=== PATIENT | female | born 1985 | race Caucasian/White ===

== ENCOUNTER 2017-05-21 14:10 | Emergency (ER) | payer OTHER ==
[2017-05-21 17:46] VITALS: BP 125/80
== END 2017-05-21 17:52 | disposition home or self-care (01) ==
LOC: ED 14:10
DX: N76.0 Acute vaginitis (principal); Z88.0 Allergy status to penicillin
CPT/HCPCS: 87491; 87591; J0696

== ENCOUNTER 2017-07-23 12:56 | Emergency (ER) | payer OTHER ==
[2017-07-23 15:55] LABS: microscopic required? NO
[2017-07-23 16:05] LABS: UA SPECIFIC GRAVITY 1.015 (1.005-1.035); urine erythrocyte NEGATIVE (NEGATIVE)
[2017-07-23 16:55] VITALS: BP 120/80
== END 2017-07-23 16:55 | disposition home or self-care (01) ==
LOC: ED 12:56
PROVIDERS: Emergency Medicine
DX: N83.201 Unspecified ovarian cyst, right side (principal); Z88.0 Allergy status to penicillin
CPT/HCPCS: 36415; 87491; 87591

== ENCOUNTER 2017-08-19 13:05 | Emergency (ER) | payer OTHER ==
[2017-08-19 15:17] LABS: microscopic required? NO
[2017-08-19 15:29] LABS: PLATELET COUNT 148 x10^3mcL (130-400)
[2017-08-19 15:31] LABS: BASOPHIL % 0 % (0-2)
[2017-08-19 15:31] LABS: urine erythrocyte NEGATIVE (NEGATIVE)
[2017-08-19 15:35] LABS: CALCIUM 8.5 mg/dL (8.5-10.1); CHLORIDE SERUM 105 mmol/L (98-107); CREATININE SERUM 0.8 mg/dL (0.6-1.0); GFR1 > 60 mL/min; GLUCOSE SERUM 95 mg/dL (74-106); POTASSIUM SERUM 3.1 mmol/L (3.5-5.1); SODIUM SERUM 141 mmol/L (136-145)
[2017-08-19 15:40] LABS: ALBUMIN 3.9 g/dL (3.4-5.0); ALKALINE PHOSPHATASE 88 U/L (46-116); ALT/SGPT 19 U/L (14-59); AST/SGOT 17 U/L (15-37); BILIRUBIN TOTAL 1.5 mg/dL (0.20-1.00)
[2017-08-19 19:59] VITALS: BP 98/58
== END 2017-08-19 20:06 | disposition home or self-care (01) ==
LOC: ED 13:05
PROVIDERS: Emergency Medicine
DX: J32.9 Chronic sinusitis, unspecified (principal); K29.00 Acute gastritis without bleeding; R51 Headache
CPT/HCPCS: J1885; J2405; J3010; J3480; J7030; Q0162

== ENCOUNTER 2017-11-06 12:59 | Emergency (ER) | payer OTHER ==
[~2017-11-06] VITALS: Ht 162.6 cm; Wt 61.2 kg
[2017-11-06 13:05] VITALS: Ht 162.6 cm; Wt 61.2 kg
[2017-11-06 14:49] VITALS: BP 118/72
== END 2017-11-06 14:49 | disposition home or self-care (01) ==
LOC: ED 12:59
DX: R10.9 Unspecified abdominal pain (principal); Z88.0 Allergy status to penicillin; Z87.42 Personal history of other diseases of the female genital tract

== ENCOUNTER 2018-02-19 19:37 | Emergency (ER) | payer OTHER ==
[~2018-02-19] VITALS: Ht 162.6 cm; Wt 64.0 kg
[2018-02-19 19:57] VITALS: Ht 162.6 cm; Wt 64.0 kg
[2018-02-19 22:57] VITALS: BP 110/63
== END 2018-02-19 22:57 | disposition home or self-care (01) ==
LOC: ED 19:37
DX: N39.0 Urinary tract infection, site not specified (principal)
CPT/HCPCS: J0780; J1200; J2405; J7030

== ENCOUNTER 2018-04-01 05:21 | Emergency (ER) | payer OTHER ==
[2018-04-01 06:07] LABS: BASOPHIL % 0.4 % (0-2); PLATELET COUNT 186 x10^3mcL (130-400); RED CELL DISTRIBUTION WIDTH 12.9 % (11.5-14.5)
[2018-04-01 06:12] LABS: CALCIUM 8.3 mg/dL (8.5-10.1); CARBON DIOXIDE 24.5 mmol/L (21-32); CHLORIDE SERUM 106 mmol/L (98-107); CREATININE SERUM 0.7 mg/dL (0.6-1.0); GFR1 > 60 mL/min; GLUCOSE SERUM 97 mg/dL (74-106); POTASSIUM SERUM 3.6 mmol/L (3.5-5.1); SODIUM SERUM 139 mmol/L (136-145)
[2018-04-01 06:17] LABS: ALBUMIN 3.4 g/dL (3.4-5.0); ALKALINE PHOSPHATASE 87 U/L (46-116); ALT/SGPT 22 U/L (14-59); AST/SGOT 18 U/L (15-37); BILIRUBIN TOTAL 0.6 mg/dL (0.20-1.00); LIPASE 180 IU/L (73-393); TOTAL PROTEIN, SERUM 7.1 g/dL (6.4-8.2)
[2018-04-01 07:27] VITALS: BP 105/61
== END 2018-04-01 07:27 | disposition home or self-care (01) ==
LOC: ED 05:21
PROVIDERS: Emergency Medicine
DX: K59.09 Other constipation (principal)
CPT/HCPCS: 87491; 87591; J1885; J2405; J7030

== ENCOUNTER 2018-05-27 12:54 | Emergency (ER) | payer OTHER ==
[~2018-05-27] VITALS: Ht 162.6 cm; Wt 60.9 kg
[2018-05-27 13:01] VITALS: Ht 162.6 cm; Wt 60.9 kg
[2018-05-27 15:09] VITALS: BP 119/75
== END 2018-05-27 15:08 | disposition home or self-care (01) ==
LOC: ED 12:54
DX: K59.00 Constipation, unspecified (principal); Z88.0 Allergy status to penicillin

== ENCOUNTER 2019-10-31 12:29 | Emergency (ER) | payer OTHER ==
[~2019-10-31] VITALS: Ht 162.6 cm; Wt 61.2 kg
[2019-10-31 14:49] VITALS: BP 122/87; Ht 162.6 cm; Wt 61.2 kg
== END 2019-10-31 15:03 | disposition home or self-care (01) ==
LOC: ED 12:29
DX: B34.9 Viral infection, unspecified (principal); A60.00 Herpesviral infection of urogenital system, unspecified; Z88.0 Allergy status to penicillin; Z98.890 Other specified postprocedural states